=== PATIENT | female | born 1945 | race Caucasian/White ===

== ENCOUNTER 2017-12-09 16:43 | Emergency (ER) | payer OTHER ==
--- NOTE | 2017-12-09 19:11 | RAD REPORT ---
EXAM DESCRIPTION: RAD - Foot Right 3 View - 12/09/2017 6:41 pm CLINICAL HISTORY: Trauma to the foot, foot pain, pain with weight-bearing COMPARISON: None. FINDINGS: No acute fracture seen. There is medial angulation and medial subluxation of the fourth di stal phalanx at the DIP joint. This 3 millimeter medial displacement may be chronic for the patient. Correlation is needed with any local pain symptoms at the fourth DIP joint. No fracture is seen. Else where in the foot there is no fracture, dislocation or periosteal reaction. No acute bone findings se en. No air or foreign body in the soft tissues. IMPRESSION: No acute fracture. The medial angulation and medial subluxation of the fourth distal phalanx could be chronic. Correlati on is needed with localizing symptoms.
--- NOTE | 2017-12-09 19:17 | EDPHYS ---
Physician Documentation [facility] Name: Rosy Lara Age: 72 yrs Sex: Female : 1945 Arrival Date: 12/09/2017 Time: 16:44 Bed 15 Private MD: Jai Knight R ED Physician Glenn Alejo HPI: 12/09 17:29 This 72 yrs old Female presents to ER via Wheelchair with complaints of Right pm1 Foot Injury. 17:29 The patient presents with pain, that is acute, swelling. The complaints affect the pm1 dorsum of right foot. Context: The problem was sustained outdoors, resulted from Stepping in to a hole, the patient is not able to bear weight, the patient is not able to ambulate, Problem is a result from a previous injury: No. Onset: The symptoms/episode began/occurred 1 hour(s) ago. Modifying factors: The symptoms are alleviated by elevating leg, the symptoms are aggravated by weight bearing. Associated signs and symptoms: Pertinent negatives calf tenderness, numbness, tingling. Treatment prior to arrival includes: no previous treatment. The patient has not experienced similar symptoms in the past. Patient was walking the dog and stepped into a hole. Presenting with pain and swelling to dorsum of right foot.. 17:29 Patient did not fall or hit her head. No headache, head injury, LOC, neck pain. pm1 Historical: - Allergies: 17:18 Morphine; aj1 - Home Meds: 17:18 Metoprolol Tartrate Oral [Active]; pravastatin oral oral [Active]; gabapentin oral oral aj1 [Active]; Ranitidine Oral [Active]; Trazodone Oral [Active]; - PMHx: 17:18 GERD; Hyperlipidemia; Hypertension; aj1 - PSHx: 17:25 hand; rb1 - Immunization history:: Flu vaccine is up to date. - Social history:: Smoking status: Patient/guardian denies using tobacco. - Ebola Screening: : Patient denies travel to an Ebola-affected area in the 21 days before illness onset. ROS: 17:29 Constitutional: Negative for fever, chills, and weight loss, Eyes: Negative for injury, pm1 pain, redness, and discharge, ENT: Negative for injury, pain, and discharge, Neck: Negative for injury, pain, and swelling, Cardiovascular: Negative for chest pain, palpitations, and edema, Respiratory: Negative for shortness of breath, cough, wheezing, and pleuritic chest pain, Abdomen/GI: Negative for abdominal pain, nausea, vomiting, diarrhea, and constipation, Back: Negative for injury and pain. 17:29 Skin: Negative for injury, rash, and discoloration, Neuro: Negative for headache, weakness, numbness, tingling, and seizure. 17:29 MS/extremity: Positive for pain, swelling, tenderness, of the dorsum of right foot. Exam: 17:29 Constitutional: This is a well developed, well nourished patient who is awake, alert, pm1 and in no acute distress. Head/Face: Normocephalic, atraumatic. Neck: Trachea midline, no thyromegaly or masses palpated, and no cervical lymphadenopathy. Supple, full range of motion without nuchal rigidity, or vertebral point tenderness. No Meningismus. Chest/axilla: Normal chest wall appearance and motion. Nontender with no deformity. No lesions are appreciated. Cardiovascular: Regular rate and rhythm with a normal S1 and S2. No gallops, murmurs, or rubs. Normal PMI, no JVD. No pulse deficits. Respiratory: Lungs have equal breath sounds bilaterally, clear to auscultation and percussion. No rales, rhonchi or wheezes noted. No increased work of breathing, no retractions or nasal flaring. Back: No spinal tenderness. No costovertebral tenderness. Full range of motion. Skin: Warm, dry with normal turgor. Normal color with no rashes, no lesions, and no evidence of cellulitis. 17:29 Musculoskeletal/extremity: Extremities: grossly normal except: noted in the dorsum of right foot over 1st and 2nd metatarsal swelling and ecchymosis : Circulation is intact in all extremities. Sensation intact. right toes Vital Signs: 17:18 BP 172 / 66; Pulse 59; Resp 18; Temp 98.7(TE); Pulse Ox 100% on R/A; Weight 67.13 kg [facility] (R); Height 5 ft. 7 in. (170.18 cm) (R); Pain 5/10; 17:18 Body Mass Index 23.18 (67.13 kg, 170.18 cm) [facility] MDM: 17:22 Patient medically screened. pm1 17:37 Data reviewed: vital signs. Data interpreted: Pulse oximetry: on room air is 100 %. pm1 Interpretation: normal. 19:16 Counseling: I had a detailed discussion with the patient and/or guardian regarding: the pm1 historical points, exam findings, and any diagnostic results supporting the discharge/admit diagnosis, radiology results, the need for outpatient follow up, to return to the emergency department if symptoms worsen or persist or if there are any questions or concerns that arise at home. 12/09 17:26 Order name: Foot Right 3 View XRAY; Complete Time: 19:16 pm1 12/09 19:18 Order name: Crutches; Complete Time: 20:38 pm1 12/09 19:18 Order name: Post-op Orthopedic Shoe; Complete Time: 20:39 pm1 Administered Medications: No medications were administered Disposition: 12/09/17 19:17 Discharged to Home. Impression: Other sprain of right foot. - Condition is Stable. - Discharge Instructions: Crutch Use, Foot Sprain. - Medication Reconciliation Form, Thank You Letter, Antibiotic Education, Prescription Opioid Use form. - Follow up: Emergency Department; When: As needed; Reason: Worsening of condition. Follow up: Private Physician; When: 2 - 3 days; Reason: Recheck today's complaints, Continuance of care, Re-evaluation by your physician. - Problem is new. - Symptoms have improved. Addendum: 12/18/2017 08:26 Co-signature as Attending Physician, Glenn Alejo MD. r n Signatures: Dispatcher [employer] EDMS Shefali Green RN RN aj1 Glenn Alejo MD MD rn Pena, Laura, RN RN lp1 Keyanna Guido RN RN Shmuel Castro NP ANODIC TREATER pm1 Corrections: (The following items were deleted from the chart) 12/09 20:15 19:17 12/09/2017 19:17 Discharged to Home. Impression: Other sprain of right foot. lp1 Condition is Stable. Forms are Medication Reconciliation Form, Thank You Letter, Antibiotic Education, Prescription Opioid Use. Follow up: Emergency Department; When: As needed; Reason: Worsening of condition. Follow up: Private Physician; When: 2 - 3 days; Reason: Recheck today's complaints, Continuance of care, Re-evaluation by your physician. Problem is new. Symptoms have improved. pm1
--- NOTE | 2017-12-09 19:17 | ER ---
Nurse's Notes [facility] Name: Rosy Lara Age: 72 yrs Sex: Female : 1945 Arrival Date: 12/09/2017 Time: 16:44 Bed 15 Private MD: Jai Knight R Diagnosis: Other sprain of right foot Presentation: 12/09 17:16 Presenting complaint: Patient states: She was walking her dog and accidentally stepped aj1 into a hole and fell about an hour ago. Patient reports pain, swelling, and bruising to right foot. Patient is unable to bear weight on her right foot. Transition of care: patient was not received from another setting of care. Onset of symptoms was December 09, 2017 at 16:15. Risk Assessment: Do you want to hurt yourself or someone else? Patient reports no desire to harm self or others. Initial Sepsis Screen: Does the patient meet any 2 criteria? No. Patient's initial sepsis screen is negative. Does the patient have a suspected source of infection? No. Patient's initial sepsis screen is negative. Care prior to arrival: None. 17:16 Method Of Arrival: Wheelchair aj1 17:16 Acuity: KIRIT 4 aj1 Triage Assessment: 17:18 General: Appears in no apparent distress. comfortable, Behavior is calm, cooperative, aj1 appropriate for age. Pain: Complains of pain in dorsum of right foot Pain currently is 5 out of 10 on a pain scale. Neuro: Level of Consciousness is awake, alert, obeys commands. Cardiovascular: Patient's skin is warm and dry. Respiratory: Airway is patent Respiratory effort is even, unlabored, Respiratory pattern is regular, symmetrical. Derm: Skin is pink, warm \T\ dry. normal. Musculoskeletal: Swelling present in dorsum of right foot bruising noted to top of right foot. Injury Description: Patient fell when she stepped into a hole. Historical: - Allergies: 17:18 Morphine; aj1 - Home Meds: 17:18 Metoprolol Tartrate Oral [Active]; pravastatin oral oral [Active]; gabapentin oral oral aj1 [Active]; Ranitidine Oral [Active]; Trazodone Oral [Active]; - PMHx: 17:18 GERD; Hyperlipidemia; Hypertension; aj1 - PSHx: 17:25 hand; rb1 - Immunization history:: Flu vaccine is up to date. - Social history:: Smoking status: Patient/guardian denies using tobacco. - Ebola Screening: : Patient denies travel to an Ebola-affected area in the 21 days before illness onset. Screenin:25 Abuse screen: Denies threats or abuse. Nutritional screening: No deficits noted. rb1 Tuberculosis screening: No symptoms or risk factors identified. Fall Risk Fall in past 12 months (25 points). Secondary diagnosis (15 points) impaired mobility, No IV (0 pts). Ambulatory Aid- None/Bed Rest/Nurse Assist (0 pts). Gait- Impaired (20 pts.). Mental Status- Oriented to own ability (0 pts). Total De Paz Fall Scale indicates High Risk Score (45 or more points). Fall prevention measures have been instituted. Side Rails Up X 2 Placed Close to Nursing Station 1:1 Attendant Assigned Frequent Obs/Assessments Occuring Family Present and informed to notify staff if the need to leave the bedside As available patient and family educated on Fall Prevention Program and Strategies. Assessment: 17:25 General: Appears uncomfortable, Behavior is calm, cooperative. Pain: Complains of pain rb1 in dorsum of right foot Pain currently is 7 out of 10 on a pain scale. Pain began 2 hours ago. Neuro: Level of Consciousness is awake, alert, obeys commands, Oriented to person, place, time, situation. Cardiovascular: Capillary refill < 3 seconds is brisk in bilateral toes. Respiratory: Airway is patent Respiratory effort is even, unlabored, Respiratory pattern is regular, symmetrical. GI: No signs and/or symptoms were reported involving the gastrointestinal system. : No signs and/or symptoms were reported regarding the genitourinary system. Derm: Bruising that is dark purple, on dorsum of right foot. 17:25 Musculoskeletal: Range of motion: intact in all extremities. rb1 18:22 Reassessment: Patient appears in no apparent distress at this time. No changes from rb1 previously documented assessment. at bedside. 19:30 Reassessment: Patient is alert, oriented x 3, equal unlabored respirations, skin lp1 warm/dry/pink. Derm: Bruising that is dark purple, on dorsum of right foot. 19:30 Pain: Aggravated by weight bearing. lp1 Vital Signs: 17:18 BP 172 / 66; Pulse 59; Resp 18; Temp 98.7(TE); Pulse Ox 100% on R/A; Weight 67.13 kg aj1 (R); Height 5 ft. 7 in. (170.18 cm) (R); Pain 5/10; 17:18 Body Mass Index 23.18 (67.13 kg, 170.18 cm) aj1 ED Course: 16:44 Patient arrived in ED. sb2 16:44 Jai Knight MD is Private Physician. sb2 17:17 Triage completed. aj1 17:18 Arm band placed on Patient placed in an exam room. aj1 17:22 Shmuel Mckoy NP is PHCP. pm1 17:22 Glenn Alejo MD is Attending Physician. pm1 17:25 Patient has correct armband on for positive identification. Bed in low position. Call rb1 light in reach. Side rails up X 1. Pulse ox on. NIBP on. 17:33 Keyanna Guido, RN is Primary Nurse. rb1 18:42 Foot Right 3 View XRAY In Process Unspecified. EDMS 19:00 Report given to BABITA Araya. rb1 19:30 No provider procedures requiring assistance completed. Patient did not have IV access lp1 during this emergency room visit. 20:00 Crutch training done. Ortho shoe applied to right foot. lp1 Administered Medications: No medications were administered Outcome: 19:17 Discharge ordered by . pm1 20:00 Discharged to home with crutches, with significant other. lp1 20:00 Condition: good 20:00 Discharge instructions given to patient, Instructed on discharge instructions, follow up and referral plans. crutch walking, Demonstrated understanding of instructions, follow-up care, crutch walking. 20:15 Patient left the ED. lp1 Signatures: Dispatcher [employer] EDMS Shefali Green RN RN aj1 Quiana Sebastian RN RN lp1 Keyanna Guido, BABITA RN rb1 Shmuel Mckoy NP NUCLEAR PLANT OPERATOR pm1 Brenda Mckoy sb2
== END 2017-12-09 20:15 | disposition home or self-care (01) ==
LOC: ER 16:43
DX: S93.691A Other sprain of right foot, initial encounter (principal); X58.XXXA Exposure to other specified factors, initial encounter; Y93.K1 Activity, walking an animal; Y92.9 Unspecified place or not applicable; Z88.5 Allergy status to narcotic agent; I10 Essential (primary) hypertension; E78.5 Hyperlipidemia, unspecified
CPT/HCPCS: 99283